=== PATIENT | female | born 1985 | race Caucasian/White ===

== ENCOUNTER 2017-08-26 14:08 | Emergency (ER) | payer BC, MEDICAID ==
[2011-04-02 12:06] VITALS: BMI 34.8
[2017-08-26 15:11] LABS: BASOPHILS 0.2 % (0-2); EOSINOPHILS 0.7 % (0-7); HEMATOCRIT 40.7 % (36.0-48.0); HEMOGLOBIN 14.1 g/dL (12-16); IMMATURE GRANULOCYTES 0.5 % (0-5); LYMPHOCYTES 19.5 % (15-50); MCH 31.4 pg (26.0-34.0); MCHC 34.6 g/dL (31.0-37.0); MCV 90.6 fL (80.0-100.0); MEAN PLATELET VOLUME 9.2 fL (7.4-10.4); MONOCYTES 8.8 % (2-11); NEUTROPHILS 70.3 % (40-80); RBC 4.49 10x6/uL (4.00-5.40); RDW 12.6 % (11.5-14.5); WBC 13.6 10x3/uL (4.8-10.8)
[2017-08-26 15:14] LABS: PLATELET COUNT 213 10x3/uL (130-400)
[2017-08-26 15:37] LABS: ALBUMIN 3.2 g/dL (3.4-5.0); ALKALINE PHOSPHATASE 75 U/L (46-116); ALT (SGPT) 27 U/L (10-68); BILIRUBIN - TOTAL 0.12 mg/dL (0.2-1.3); CALC OSMOLALITY 272 mosm/kg (275-300); CALCIUM 8.7 mg/dL (8.5-10.1); CARBON DIOXIDE 24.8 mmol/L (21.0-32.0); CHLORIDE - SERUM 105 mmol/L (98-107); CREATININE - SERUM 0.8 mg/dL (0.6-1.3); GLUCOSE 88 mg/dL (74-106); POTASSIUM - SERUM 3.5 mmol/L (3.5-5.1); PROTEIN - SERUM 6.9 g/dL (6.4-8.2); SODIUM 138 mmol/L (136-145); UREA NITROGEN 8 mg/dL (7-18); eGFR NON AFRICAN AMERICAN 87 mL/min (90-120)
[2017-08-26 17:15] LABS: APPEARANCE HAZY (CLEAR); BILIRUBIN NEGATIVE (NEGATIVE); COLOR YELLOW (YELLOW); GLUCOSE NEGATIVE (NEGATIVE); KETONE SMALL mg/dL (NEGATIVE); NITRITE NEGATIVE (NEGATIVE); PROTEIN NEGATIVE (NEGATIVE); SPECIFIC GRAVITY 1.015 (1.005-1.020); UROBILINOGEN NORMAL (NORMAL)
[2017-08-26 17:16] LABS: BACTERIA MANY /hpf (NONE SEEN); EPITHELIAL CELLS 0-5 /hpf (0-5); RED CELLS - URINE OCC /hpf (0-5); WHITE CELLS - URINE 0-5 /hpf (0-5)
== END 2017-08-26 18:27 | disposition home or self-care (01) ==
LOC: D.ER 14:08
PROVIDERS: Family Medicine
DX: O26.891 Other specified pregnancy related conditions, first trimester (principal); Z3A.14 14 weeks gestation of pregnancy; R10.9 Unspecified abdominal pain

== ENCOUNTER → 2017-12-26 12:10 | Outpatient (CLI) | payer MEDICARE, MEDICAID ==
[2011-04-02 12:06] VITALS: BMI 34.8
[~2017-12-26 12:10] MED LIST: IBUPROFEN800 MG PO; PERCOCET 5-3251 TAB PO
[2018-02-14 13:18] VITALS: BMI 39.3
== END | disposition home or self-care (01) ==
LOC: D.LDO 12:10
DX: O26.899 Other specified pregnancy related conditions, unspecified trimester (principal); Z3A.00 Weeks of gestation of pregnancy not specified; R06.00 Dyspnea, unspecified

== ENCOUNTER 2018-02-14 12:14 | Inpatient (IN) | payer MEDICARE, MEDICAID ==
[2018-02-13 10:27] LABS: BASOPHILS 0.2 % (0-2); EOSINOPHILS 0.8 % (0-7); HEMATOCRIT 39.5 % (36.0-48.0); HEMOGLOBIN 13.4 g/dL (12-16); IMMATURE GRANULOCYTES 1.1 % (0-5); LYMPHOCYTES 14.8 % (15-50); MCH 31.6 pg (26.0-34.0); MCHC 33.9 g/dL (31.0-37.0); MCV 93.2 fL (80.0-100.0); MEAN PLATELET VOLUME 10.3 fL (7.4-10.4); NEUTROPHILS 76.1 % (40-80); PLATELET COUNT 204 10x3/uL (130-400); RBC 4.24 10x6/uL (4.00-5.40); RDW 13.7 % (11.5-14.5); WBC 13.1 10x3/uL (4.8-10.8)
[~2018-02-14] VITALS: Ht 152.4 cm; Wt 91.2 kg
--- NOTE | ~2018-02-14 | OP ---
PATIENT NAME: QUINTIN PRADHAN MEDICAL RECORD: [id number] LOCATION:[id number] ADMISSION DATE:02/14/18 SURGEON: PIYUSH DELGADO MD DATE OF OPERATION: 02/14/2018 PREOPERATIVE DIAGNOSES: 1. at 38 weeks gestation. 2. History of chronic hypertension. 3. Prior section. 4. Unwanted fertility. POSTOPERATIVE DIAGNOSES: 1. at 38 weeks gestation. 2. History of chronic hypertension. 3. Prior section. 4. Unwanted fertility. PROCEDURE: 1. Repeat low transverse section. 2. tubal ligation using a [place] technique. SURGEON: Piyush Delgado MD ANESTHESIA: Dr. Sierra. ANESTHETIC: Spinal. FINDINGS: Viable male infant, vertex presentation, Apgars were 9 and 9, weight 5 pounds 15 ounces. Unremarkable uterus, tubes, and ovaries bilaterally. SPECIMENS REMOVED: 1. Placenta. 2. Section of left and right tube. SPECIMEN DISPOSITION. 1. Discarded. 2. Pathology. ESTIMATED BLOOD LOSS: Less than or equal to 800 cc. FLUIDS: 1600 cc of lactated Ringer's. URINE OUTPUT: 200 cc of clear urine. COMPLICATIONS: None. DRAINS: Hollins to gravity. INDICATIONS: The patient is a 32-year-old multiparous female with unwanted fertility. The patient has had prior section. The patient has had chronic hypertension and has been on Aldomet in her . The patient has worsening hypertension including weight gain and increasing edema. The patient is consented for repeat low transverse section and tubal ligation due to unwanted fertility. The risks and benefits of a tubal ligation have been described at length including the possibility of failure 1 in 100 with OPERATIVE REPORT [id number] QUINTIN PRADHAN an increased chance of an ectopic gestation if was to occur. DESCRIPTION OF PROCEDURE: After informed consent was assured, the patient was taken to the operating room where anesthetic was obtained without difficulty. The patient was now prepped and draped in the usual sterile fashion. An incision was made over the old scar, carried down to the underlying layer of the fascia. The fascia was opened in the midline and extended laterally. The rectus bellies were dissected free superiorly and inferiorly and then the rectus bellies have been in the midline. The peritoneum was entered and the peritoneal opening extended. DeLee all-purpose retractor was inserted and low transverse hysterotomy was performed after development of the bladder flap. The infant was delivered onto the abdomen atraumatically. The cord was doubly clamped and cut and the infant was passed to the attendant. Cord blood sample was obtained and the placenta was now delivered via Crede maneuver. Uterus exteriorized, cleared of all clot and debris and returned to the abdomen for the closure. The uterus was closed with a running locked stitch of chromic. After the closure was performed, uterus again was exteriorized. The right tube grasped with Hailee clamp and a window developed in the antimesenteric portion. Two ligatures were passed in the proximal and distal segment of this opening and secured. The intervening segment of tube was excised and ostia cauterized. This was repeated on the contralateral side. Again, a window was developed and then a stitch was placed in the proximal and distal segment of the opening. The segment was removed and the ostia cauterized. The uterus was now returned to the abdomen with inspection of the stumps revealing hemostasis. Inspection of the hysterotomy again revealed hemostasis and the pelvis was irrigated. Irrigant was removed and the rectus bellies were reapproximated in the midline. Fascia was closed with looped PDS and after closure of the fascia, the subcutaneous tissue was irrigated and bleeding vessels cauterized. The skin was reapproximated with Monocryl stitch on a Antolin needle. Sterile dressing applied. Sponge, lap, and needle count was correct times 2 at the close of this procedure. TRANSINT:[id number] Voice Confirmation ID: [id number] DOCUMENT ID: [id number] PIYUSH DELGADO MD at 0932 CC: [id number] DICTATION DATE: 02/14/18 1524 TAMALE MAKER: 02/14/18 1637 DIS IN 02/16/18 [facility] [address] [place] [address]
[2018-02-14 08:14] LABS: RAPID PLASMA REAGIN Non Reactive (Non Reactive)
[2018-02-14 13:18] VITALS: BP 146/87; Ht 152.4 cm; Wt 91.2 kg
[2018-02-14 16:16] VITALS: BP 173/79
[2018-02-14 19:25] VITALS: BP 172/95
[2018-02-14 20:17] VITALS: BP 146/87
[2018-02-14 22:11] VITALS: BP 145/90
[2018-02-15 02:58] VITALS: BP 124/72
[2018-02-15 07:08] LABS: BASOPHILS 0.1 % (0-2); EOSINOPHILS 0.5 % (0-7); HEMATOCRIT 41.2 % (36.0-48.0); HEMOGLOBIN 13.9 g/dL (12-16); IMMATURE GRANULOCYTES 1.5 % (0-5); LYMPHOCYTES 11.5 % (15-50); MCH 31.7 pg (26.0-34.0); MCHC 33.7 g/dL (31.0-37.0); MCV 93.8 fL (80.0-100.0); MEAN PLATELET VOLUME 10.5 fL (7.4-10.4); MONOCYTES 6.2 % (2-11); NEUTROPHILS 80.2 % (40-80); PLATELET COUNT 179 10x3/uL (130-400); RBC 4.39 10x6/uL (4.00-5.40); RDW 13.9 % (11.5-14.5)
[2018-02-15 07:12] LABS: WBC 16.7 10x3/uL (4.8-10.8)
[2018-02-15 07:57] VITALS: BP 120/78
[2018-02-15 12:23] VITALS: BP 122/74
[2018-02-15 15:55] VITALS: BP 130/82
[2018-02-15 20:15] VITALS: BP 127/90
[2018-02-15 23:29] VITALS: BP 133/77
[2018-02-16 03:41] VITALS: BP 157/91
[2018-02-16 03:56] VITALS: BP 136/85
[2018-02-16 07:12] VITALS: BP 144/79
[2018-02-16] MEDS ORDERED: IBUPROFEN800 MG PO (08:26)
[2018-02-16] MEDS ORDERED: PERCOCET 5-3251 TAB PO (08:27)
== END 2018-02-16 14:40 | disposition home or self-care (01) | DRG 766 ==
LOC: D.LD 12:14
PROVIDERS: Obstetrics & Gynecology
PROC: 10D00Z1 Extraction of Products of Conception, Low, Open Approach (ICD-10-PCS; principal; 2018-02-14 13:15)
PROC: 0UB70ZZ Excision of Bilateral Fallopian Tubes, Open Approach (ICD-10-PCS; 2018-02-14 13:15)
DX: O11.4 Pre-existing hypertension with pre-eclampsia, complicating childbirth (principal); O34.211 Maternal care for low transverse scar from previous cesarean delivery; Z30.2 Encounter for sterilization; Z3A.38 38 weeks gestation of pregnancy; Z37.0 Single live birth